=== PATIENT | male | born 1965 | race Caucasian/White ===

== ENCOUNTER 2019-11-14 14:35 | Emergency (ER) | payer OTHER ==
[~2019-11-14] VITALS: Ht 180.3 cm; Wt 124.3 kg
[~2019-11-14 14:35] MED LIST: BENZTROPINE MES 1 MG TABLET; LISINOPRIL 20 MG TABLET; METO25TE2 PO; RISPERIDONE 3 MG TABLET
[2019-11-14 14:39] VITALS: BP 143/78
[2019-11-14 16:09] VITALS: BP 143/78
== END 2019-11-14 16:00 | disposition home or self-care (01) ==
LOC: MED 14:35
DX: S00.86XA Insect bite (nonvenomous) of other part of head, initial encounter (principal); S80.862A Insect bite (nonvenomous), left lower leg, initial encounter; S80.861A Insect bite (nonvenomous), right lower leg, initial encounter; I10 Essential (primary) hypertension; Z79.899 Other long term (current) drug therapy; W57.XXXA Bitten or stung by nonvenomous insect and other nonvenomous arthropods, initial encounter; Y93.01 Activity, walking, marching and hiking; Y92.488 Other paved roadways as the place of occurrence of the external cause; Y99.8 Other external cause status
CPT/HCPCS: 99281